=== PATIENT | female | born 1975 | race Caucasian/White ===

== ENCOUNTER → 2022-09-17 | Outpatient (CLI) | payer OTHER ==
--- NOTE | 2022-09-18 07:45 | CA ---
Transthoracic Echo Report Name: Sisi Coffman Age: 47 Gender: F : 1975 Exam Date: 09/17/2022 13:52 Exam Location: [facility] Ht (in): 66 Wt (lb): 210 Ordering Physician: Israel Gurrola MD Attending/Referring Phys: Israel Gurrola MD Vice President Sales Melissa Pop [facility] Procedure CPT: Indications: Z12.31 I44.4 Cardiac Hx: Technical Quality: Contrast 1: Total Dose (mL): Contrast 2: Total Dose (mL): MEASUREMENTS (Male / Female) Normal Values 2D ECHO LV Diastolic Diameter PLAX 4.5 cm 4.2 - 5.9 / 3.9 - 5.3 cm LV Systolic Diameter PLAX 3.4 cm IVS Diastolic Thickness 0.9 cm 0.6 - 1.0 / 0.6 - 0.9 cm LVPW Diastolic Thickness 0.9 cm 0.6 - 1.0 / 0.6 - 0.9 cm LV Relative Wall Thickness 0.4 Ascending Aorta Diameter 2.8 cm M-MODE Aortic Root Diameter MM 2.6 cm LA Systolic Diameter MM 2.4 cm LA Ao Ratio MM 0.9 AV Cusp Separation MM 2.0 cm DOPPLER AV Peak Velocity 117.3 cm/s AV Peak Gradient 5.5 mmHg AV Mean Velocity 91.0 cm/s AV Mean Gradient 3.5 mmHg AV Velocity Time Integral 19.8 cm LVOT Peak Velocity 108.6 cm/s LVOT Peak Gradient 4.7 mmHg LVOT Velocity Time Integral 17.7 cm Mitral E Point Velocity 57.5 cm/s Mitral A Point Velocity 75.8 cm/s Mitral E to A Ratio 0.8 MV Deceleration Time 119.0 ms LV E' Lateral Velocity 10.2 cm/s Mitral E to LV E' Lateral Ratio 5.7 LV E' Septal Velocity 7.7 cm/s Mitral E to LV E' Septal Ratio 7.5 Right Atrial Pressure 3.0 mmHg FINDINGS Left Ventricle Left ventricular cavity size normal. Left ventricular wall thickness normal. Left ventricular ejection fraction is estimated at 50-55 %. Borderline ventricular systolic function. Abnormal septal motion consistent with left bundle branch block. Right Ventricle Normal right ventricular size. Unable to estimate the right ventricular systolic pressure. Right Atrium Normal right atrial size. Left Atrium Normal left atrial size. Mitral Valve Structurally normal mitral valve. No mitral regurgitation. Aortic Valve Trileaflet aortic valve. No aortic regurgitation. Tricuspid Valve Structurally normal tricuspid valve. No tricuspid regurgitation. Pulmonic Valve Pulmonic valve not well visualized. No pulmonic regurgitation. Pericardium No pericardial effusion. Aorta Normal size aortic root and proximal ascending aorta. CONCLUSIONS 1. The ventricle systolic function borderline normal 2. No significant valvular regurgitation Previewed by: Dr. Sveta Condon MD (Electronically Signed) Final Date: 18 September 2022 07:44
--- NOTE | 2022-09-23 08:24 | MM ---
Reason for Exam: Screening (asymptomatic). Last mammogram was performed 2 year(s) and 0 month(s) ago. Patient History: Menarche at age 14. First Full-Term at age 24. Patient has history of breast feeding. Patient used Hormonal Contraceptives for 4 years. 2009, Bilateral Implants. Maternal grandmother had breast cancer at or over age 50. Paternal grandmother had breast cancer at or over age 50. Last menstrual period: 09/06/2022 Risk Values: Liberty 5 year model risk: 0.8%. NCI Lifetime model risk: 8.5%. Prior Study Comparison: 03/10/2019 Bilateral Screening Mammogram, [facility] . 06/19/2020 Bilateral Screening Mammogram, [facility], [place]. 07/13/2020 Left Diagnostic Mammogram, [facility]. Tissue Density: The breast tissue is heterogeneously dense. This may lower the sensitivity of mammography. Findings: Analyzed By CAD. Breast implants are present. Left breast biopsy clip is present. There is no suspicious group of microcalcifications or new suspicious mass in either breast. Overall Assessment: Benign, BI-RAD 2 Management: Screening Mammogram of both breasts in [address] [facility] will attempt to contact patient to return for supplemental views and ultrasound if indicated. Patient should continue monthly self-breast exams. A clinical breast exam by your physician is recommended on an annual basis. This exam should not preclude additional follow-up of suspicious palpable abnormalities. Note on Liberty scores and lifetime risk: 1. A Liberty score greater than 3% is considered moderate risk. If this is the case, consider specialist referral to assess eligibility for a risk reducing agent. 2. If overall lifetime risk for the development of breast cancer is 20% or higher, the patient may qualify for future screening with alternating mammogram and breast MRI. Electronically signed and approved by: Bakari Ciu DO
== END | disposition home or self-care (01) ==
LOC: RADMAMWWP 13:02
PROVIDERS: ATTEND Family Medicine
DX: Z12.31 Encounter for screening mammogram for malignant neoplasm of breast (principal); I44.7 Left bundle-branch block, unspecified; Z80.3 Family history of malignant neoplasm of breast
CPT/HCPCS: 77067; 93306

== ENCOUNTER 2024-02-11 14:51 | Emergency (ER) | payer OTHER ==
[2024-02-11 15:30] VITALS: RESP 18; TEMP 98.5
[2024-02-11] MEDS: IBUPROFEN 600 MG TAB PO STA (16:43)
--- NOTE | 2024-02-11 16:51 | XR ---
EXAMINATION TYPE: XR ankle complete RT, XR foot complete RT DATE OF EXAM: 02/11/2024 4:37 PM COMPARISON: None CLINICAL INDICATION: Female, 48 years old with history of right ankle injury; PHH, pain TECHNIQUE: XR ankle complete RT, XR foot complete RT; is imaged in frontal, lateral and oblique proj ections. FINDINGS: There is no evidence of acute osseous pathology. No evidence of subluxation or dislocation. Kager's fat pad is intact. No radiopaque foreign bodies are identified. Calcaneal plantar spurring is present . Injury to the lateral ligaments with calcification which is well corticated present near the distal fibula IMPRESSION: 1. No evidence of acute fracture. [facility], , 02/11/2024 4:49 PM
--- NOTE | 2024-02-11 17:16 | ED ---
Lower Extremity Injury HPI - General Chief Complaint: Extremity Injury, Lower Stated Complaint: Right ankle injury Time Seen by Provider: 02/11/24 16:00 Source: patient, RN notes reviewed Mode of arrival: ambulatory Limitations: no limitations - History of Present Illness Initial Comments: 48-year-old female presenting with right ankle injury 2 days ago. States she was walking down the stairs when she accidentally inverted her ankle. Since then, she has had pain and bruising on the lateral aspect of the right ankle. She is able to weight-bear. No other injuries. - Related Data Previous Rx's Medication Instructions Recorded methocarbamoL [Robaxin] 500 mg PO TID PRN #15 tab 02/11/24 Allergies Allergy/AdvReac Type Severity Reaction Status Date / Time Penicillins Allergy Unknown Verified 02/11/24 15:25 Review of Systems ROS Statement: Those systems with pertinent positive or pertinent negative responses have been documented in the HPI. ROS Other: All systems not noted in ROS Statement are negative. Past Medical History Past Medical History: No Reported History Past Surgical History: Section Past Psychological History: Anxiety, Depression Smoking Status: Current some day smoker Past Alcohol Use History: Occasional Past Drug Use History: Marijuana General Exam Limitations: no limitations General appearance: alert, in no apparent distress Head exam: Present: atraumatic, normocephalic, normal inspection Right Lower Leg exam: Present: normal inspection, full ROM. Absent: tenderness, swel ling Ankle exam: Present: full ROM, tenderness, swelling. Absent: normal inspection (Moderate contusions present over ankle and distal lower leg with diffuse tenderness over dorsal foot and lateral malleolus), abrasion, laceration, deformity Foot/Toe exam: Present: full ROM, tenderness, swelling. Absent: deformity, erythema Neurovascular tendon exam: Present: no vascular compromise. Absent: pulse deficit, abnormal cap refill, sensory deficit Neurological exam: Present: alert, oriented X3 Psychiatric exam: Present: normal affect, normal mood Skin exam: Present: warm, dry, intact, normal color. Absent: rash Course Vital Signs 02/11/24 02/11/24 15:26 17:28 Temperature 98.5 F 98.5 F Pulse Rate 91 87 Respiratory 18 18 Rate Blood Pressure 123/72 125/81 O2 Sat by Pulse 99 99 Oximetry Medical Decision Making - Medical Decision Making Was pt. sent in by a medical professional or institution (Dr., PA, FAT PRESSROOM WORKER, urgent care, hospital, or custodial...) When possible be specific @ -No Did you speak to anyone other than the patient for history (EMS, parent, family, police, friend...)? What history was obtained from this source @ -No Did you review nursing and triage notes (agree or disagree)? Why? @ -I reviewed and agree with nursing and triage notes Were old charts reviewed (outside hosp., previous admission, EMS record, old EKG, old radiological studies, urgent care reports/EKG's, custodial records)? Report findings @ -No old charts were reviewed Differential Diagnosis (chest pain, altered mental status, abdominal pain women, abdominal pain men, vaginal bleeding, weakness, fever, dyspnea, syncope, headache, dizziness, GI bleed, back pain, seizure, CVA, palpatations, mental health, musculoskeletal)? @ -Differential Musculoskeletal Muscular strain, contusion, ligament sprain, fracture, arthritis, septic arthritis, bursitis, cellulitis, muscle spasm, nerve compression, DVT, arterial occlusion, herpes zoster, electrolyte abnormality, tumor.... This is not meant to be in all inclusive list EKG interpreted by me (3pts min.). @ -None X-rays interpreted by me (1pt min.). @ -X-ray right ankle and right foot reveals no acute process CT interpreted by me (1pt min.). @ -None done U/S interpreted by me (1pt. min.). @ -None done What testing was considered but not performed or refused? (CT, X-rays, U/S, l abs)? Why? @ -None What meds were considered but not given or refused? Why? @ -None Did you discuss the management of the patient with other professionals (professionals i.e. JOSE Scruggs, FAT PRESSROOM WORKER, lab, RT, psych nurse, renal social worker, ext js developer, teacher, global chief creative officer, bilingual case manager)? Give summary @ -No Was smoking cessation discussed for >3mins.? @ -No Was critical care preformed (if so, how long)? @ -No Were there social determinants of health that impacted care today? How? (Homelessness, low income, unemployed, alcoholism, drug addiction, transportation, low edu. Level, literacy, decrease access to med. care, residential, rehab)? @ -No Was there de-escalation of care discussed even if they declined (Discuss DNR or withdrawal of care, Hospice)? DNR status @ -No What co-morbidities impacted this encounter? (DM, HTN, Smoking, COPD, CAD, Cancer, CVA, ARF, Chemo, Hep., AIDS, mental health diagnosis, sleep apnea, morbid obesity)? @ -None Was patient admitted / discharged? Hospital course, mention meds given and route, prescriptions, significant lab abnormalities, going to OR and other pertinent info. @ -Discharge. Right lower extremity neurovascularly intact. Patient is able to weight-bear. Patient provided with ibuprofen. X-ray right ankle and right foot reveals no acute process. Discussed negative findings with patient. Discussed diagnosis of right ankle sprain. Maxi wrap applied. Appropriate return precautions and supportive care discussed. Case was discussed with my ED attending Dr. Chambers Undiagnosed new problem with uncertain prognosis? @ -No Drug Therapy requiring intensive monitoring for toxicity (Heparin, Nitro, Insulin, Cardizem)? @ -No Were any procedures done? @ -No Diagnosis/symptom? @ -Right ankle sprain Acute, or Chronic, or Acute on Chronic? @ -Acute Uncomplicated (without systemic symptoms) or Complicated (systemic symptoms)? @ -Uncomplicated Side effects of treatment? @ -No Exacerbation, Progression, or Severe Exacerbation? @ -No Poses a threat to life or bodily function? How? (Chest pain, [place], [place], pneumonia, PE, COPD, DKA, ARF, appy, cholecystitis, CVA, Diverticulitis, Homicidal, Suicidal, threat to staff... and all critical care pts) @ -No Disposition Clinical Impression: Right ankle sprain Disposition: HOME SELF-CARE Condition: Stable Instructions (If sedation given, give patient instructions): Ankle Sprain (ED) Additional Instructions: Rest, ice, and elevate right ankle. Take ibuprofen and muscle relaxers as needed for pain. Please return to the Emergency Department if symptoms worsen or any other concerns. Prescriptions: methocarbamoL [Robaxin] 500 mg PO TID PRN #15 tab PRN Reason: muscle spasms Is patient prescribed a controlled substance at d/c from ED?: No Referrals: Israel Gurrola MD [Primary Care Provider] - 1-2 days Time of Disposition: 17:16
[2024-02-11 17:29] VITALS: BP 125/81; PULSE 87
== END 2024-02-11 17:28 | disposition home or self-care (01) ==
LOC: EC 14:51
DX: S93.401A Sprain of unspecified ligament of right ankle, initial encounter (principal); F17.200 Nicotine dependence, unspecified, uncomplicated; Z88.0 Allergy status to penicillin; X50.0XXA Overexertion from strenuous movement or load, initial encounter; Y93.01 Activity, walking, marching and hiking
CPT/HCPCS: 99283

== ENCOUNTER → 2024-03-03 | Outpatient (CLI) | payer OTHER ==
--- NOTE | 2024-03-03 12:29 | MM ---
Reason for Exam: Hx of breast augmentation, asymptomatic. Last mammogram was performed 1 year(s) and 5 month(s) ago. Patient History: Menarche at age 14. First Full-Term at age 24. Premenopausal. Patient has history of breast feeding. Patient used Hormonal Contraceptives for 4 years. 2009, Bilateral Implants. Maternal grandmother had breast cancer at or over age 50. Paternal grandmother had breast cancer at or over age 50. Risk Values: Liberty 5 year model risk: 0.8%. NCI Lifetime model risk: 8.4%. Prior Study Comparison: 06/19/2020 Bilateral Screening Mammogram, [facility], [place]. 07/13/2020 Left Diagnostic Mammogram, [facility], [place]. 09/17/2022 Bilateral MG screening mammo implant/CAD, [facility]. Tissue Density: The breasts are heterogeneously dense, which may obscure small masses. Findings: Analyzed By CAD. Bilateral breast implants are redemonstrated. Biopsy clip left breast again seen. There is no suspicious new group of microcalcifications or new suspicious mass in either breast. Overall Assessment: Benign, BI-RAD 2 Management: Screening Mammogram of both breasts in 1 year. . Patient should continue monthly self-breast exams. A clinical breast exam by your physician is recommended on an annual basis. This exam should not preclude additional follow-up of suspicious palpable abnormalities. Note on Liberty scores and lifetime risk: 1. A Liberty score greater than 3% is considered moderate risk. If this is the case, consider specialist referral to assess eligibility for a risk reducing agent. 2. If overall lifetime risk for the development of breast cancer is 20% or higher, the patient may qualify for future screening with alternating mammogram and breast MRI. [facility], , 03/03/2024 12:26 PM. Electronically signed and approved by: Jarvis Brito M.D.
== END | disposition home or self-care (01) ==
LOC: RADMAMWWP 09:33
PROVIDERS: ATTEND Family Medicine
DX: Z12.31 Encounter for screening mammogram for malignant neoplasm of breast (principal); Z80.3 Family history of malignant neoplasm of breast; R92.333 Mammographic heterogeneous density, bilateral breasts
CPT/HCPCS: 77063; 77067